=== PATIENT | female | born 1945 | race Caucasian/White ===

== ENCOUNTER 2017-11-14 21:28 | Inpatient (IN) | payer MEDICARE, OTHER ==
[2017-11-14 22:29] LABS: #Basophils 0.1 thou/uL (0.0-0.2); #Eosinphils 0.2 thou/uL (0.0-0.7); #Lymphocytes 2.6 thou/uL (1.20-3.40); #Monocytes 0.4 thou/uL (0.11-0.59); %Eosinophils 1.7 % (0.0-10.0); %Lymphocytes 27.6 % (21.0-51.0); %Monocytes 4.7 % (0.0-10.0); Hemoglobin 13.4 g/dL (12.0-16.0); Mean Corpuscular HGB CONC 34.2 g/dL (32.0-36.0); Mean Corpuscular Hemoglobin 29.9 pg (27.0-31.0); Mean Corpuscular Volume 87.3 fl (81.0-99.0); Platelet Count 164 thou/uL (130-400); RBC Distribution Width 12.8 % (11.5-14.5); Red Blood Cell (RBC) Count 4.48 mill/uL (4.20-5.40); White Blood Cell (WBC) Count 9.2 thou/uL (4.8-10.8)
[2017-11-14 22:52] LABS: ALT (SGPT) 14 U/L (8-55); AST (SGOT) 20 U/L (5-34); Acetaminophen Less than 6.0 mcg/mL (10.0-30.0); Albumin 4.4 g/dL (3.4-4.8); Alcohol Less than 10 mg/dL (Less than 10); Alkaline Phosphatase 79 U/L (40-150); Anion Gap 13 mmol/L (10-20); BUN (Urea Nitrogen) 17 mg/dL (9.8-20.1); Bilirubin, Total 0.6 mg/dL (0.2-1.2); Calc. Creatinine Clearance 0 mL/min (70-130); Calcium 9.4 mg/dL (7.8-10.44); Carbon Dioxide 27 mmol/L (23-31); Chloride 101 mmol/L (98-107); Estimated GFR-MDRD 70; Globulin 3.2 g/dL (2.4-3.5); Glucose 109 mg/dL (83-110); Potassium 3.8 mmol/L (3.5-5.1); Protein, Total 7.6 g/dL (6.0-8.3); Salicylate Less than 8.0 mg/dL (15.0-30.0); Sodium 137 mmol/L (136-145)
[2017-11-15] MEDS ORDERED: Ziprasidone 20 MG VIAL ONE (01:53)
[2017-11-15 04:15] VITALS: BMI 38.9
--- NOTE | 2017-11-15 08:31 | CT ---
PRELIMINARY REPORT/[facility]/EMERGENTY AFTER-HOURS PROCEDURE CT Head Without Intravenous Contrast CLINICAL HISTORY: 71 years old, female; Signs and symptoms; Altered mental status/memory loss; Confusion or disorientat ion; Patient HX: Pt has dementia and started becoming combative towards her . Ems reports she ran out to a nearby home where they took her to the hospital. 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 Pt denies pain. Pt reports wondering around, homeless. TECHNIQUE: Axial computed tomography images of the head/brain without intravenous contrast. COMPARISON: No relevant prior studies available. FINDINGS: Brain: Normal. No hemorrhage. No significant white matter disease. No edema. Ventricles: Normal. No ventriculomegaly. Bones/joints: Normal. No acute fracture. Soft tissues: Normal. Sinuses: Unremarkable as visualized. No acute sinusitis. Mastoid air cells: Unremarkable as visualized. No mastoid effusion. IMPRESSION: No acute intracranial hemorrhage. Thank you for allowing us to participate in the care of your patient. Dictated and Authenticated by: Kirby Isaac MD 11/15/2017 2:15 AM Central Time ([place] & [place]) FINAL REPORT CT HEAD NONCONTRAST: DATE: 11/15/17. TIME: Performed on an emergency basis at 0123 hours. HISTORY: Altered mental status. FINDINGS: Agree with the preliminary report by Dr. Isaac from [facility]. No acute intracranial abnorm alities are demonstrated on noncontrast CT head. POS: OFF
[2017-11-15] MEDS ORDERED: Acetaminophen 500 MG TAB PO PRN (08:59)
[2017-11-15] MEDS ORDERED: Ondansetron HCl/PF 4 MG/2 ML Vial IVP PRN (08:59)
[2017-11-15] MEDS ORDERED: hydrALAZINE 20 MG/ML VIAL SLOW IVP PRN (08:59)
[2017-11-15] MEDS ORDERED: cloNIDine 0.1 MG TAB PO PRN (08:59)
[2017-11-15] MEDS ORDERED: Ondansetron ODT 4 MG TAB PO PRN (08:59)
--- NOTE | 2017-11-15 09:42 | HP ---
DATE OF ADMISSION: 11/15/2017 PRIMARY CARE PHYSICIAN: Dr. Felder at [facility]. CHIEF COMPLAINT: Altered mental status. HISTORY OF PRESENT ILLNESS: This is a 71-year-old female, who presents to [facility] and transport by EMS personnel after the reported patient becoming agitated , combative, and verbally abusive. The patient apparently has had progressive confusion, memory loss as well as paranoia over the last several weeks, worsening in the last 24-48 hours. The patient has been accusing her of kidnapping her and holding her against her will. The reports h e has had several proceedings and conjunction with core proceedings to obtain a guardian as well as c onsider placement in a dementia unit. The has been working with the patient's primary care kike camarillo to establish the administrative tasks of proceeding with placement. reports increasi ng memory difficulties over the last 4 years, worsening in the last several months and increase in co nfusion and paranoia, peaking prior to this evaluation. The reports the patient does have da ys where she is more clear; however, the frequency of these episodes of confusion, paranoia, and verb al assaults are increasing. reports the patient takes no specific chronic medication regimen other than multivitamins and occasional aspirin. No recent sickness, injury, travel history, or [facility] contacts. No history of recent head injury or surgical procedure. The patient was brought to the emergency room undergoing evaluation including screening metabolic survey, which was unremarkable. C T imaging of the brain was unrevealing and patient was evaluated by the [facility] service. Due to patient 's worsening mental status, confusion and paranoia and concern for safety, the patient was deemed an appropriate candidate for admission. PAST MEDICAL HISTORY: 1. Question of hypertension. 2. Question of dementia, progressive. PAST SURGICAL HISTORY: Reviewed and negative. CURRENT MEDICATIONS: 1. Aspirin 81 mg daily. 2. Multivitamin. ALLERGIES: No known drug allergies. FAMILY HISTORY: Father with a history of Alzheimer's dementia. SOCIAL HISTORY: The patient is , resides in [place], [place], with her . No current alcoh ol, tobacco, or illicit drug use. 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 REVIEW OF SYSTEMS: Unobtainable due to patient's altered mental status and dementia. PHYSICAL EXAMINATION: VITAL SIGNS: Currently, blood pressure 142/83, pulse 70, respiratory rate 16, temperature 98.1 degre es Fahrenheit, and O2 saturation 98% on room air. GENERAL APPEARANCE: This is a 71-year-old female, alert and oriented x1, pleasant, in no a cute distress. HEENT: Pupils are equal, round, and reactive to light and accommodation. Extraocular muscles are in tact. No scleral icterus, no conjunctival injection. Nares patent. OP is clear. Teeth in fair rep air. NECK: Supple, no cervical adenopathy, no thyromegaly, no carotid bruits, no JVD appreciated. Cervic al spine with full active and passive range of motion. No meningeal signs appreciated. CHEST: Lungs are clear to auscultation bilaterally. CARDIOVASCULAR: S1 and S2, without noted murmur, rub or gallop. ABDOMEN: Rounded, soft, nontender, nondistended. Bowel sounds are positive in all four quadrants. There is no hepatosplenomegaly, no abdominal bruits, no rebound or guarding appreciated. EXTREMITIES: Warm and dry with fair turgor. No clubbing, cyanosis or asymmetric edema appreciated. Pulses palpable distally at the dorsalis pedis, posterior tibial, and popliteal arteries bilaterally . Capillary refill less than 2 seconds. NEUROLOGIC: Cranial nerves II-XII are grossly intact. No focal or lateralizing signs appreciated. PERTINENT LABORATORY AND X-RAY FINDINGS: Complete metabolic profile within normal limits. CBC withi n normal limits. Urine salicylate, acetaminophen level negative. Plasma alcohol level less than 10. CT of the brain without contrast dated 11/15/2017 showed no acute intracranial process. ASSESSMENT AND PLAN: 1. Dementia, question of Alzheimer's type. The patient will be observed on the medical floor. Clin ically, progressive process. We will obtain neurology consultation for any further recommendations a nd management. Consult case management services for any assistance with possible placement. Check T SH and ammonia level. Continue general supportive management. [facility] evaluation completed in the formerly [facility] room. 2. Encephalopathy. 3. Acute on chronic, likely related to #1. Continue general supportive management. Close observati on on the medical floor. 4. Prophylaxis. Sequential compression devices while in bed. Pepcid 20 mg p.o. b.i.d. 5. Code status is FULL. Surrogate medical decision maker is patient's spouse.
[2017-11-15] MEDS: Famotidine 20 MG TAB PO SCH ×2 (11:20→20:04)
[2017-11-16 01:54] LABS: Clarity Clear (Clear); Leukocyte Negative (Negative); Nitrite Negative (Negative); pH, Urine 6.5 (5.0-9.0)
[2017-11-16 01:55] LABS: Bilirubin Negative (Negative); Blood, Urine Negative (Negative); Glucose, Urine (Dipstick) Negative (Negative); Protein, Urine (Dipstick) Negative (Neg-Trace); Urobilinogen 0.2 mg/dL (0.2-1.0)
[2017-11-16 01:56] LABS: Bacteria/HPF None Seen HPF (None Seen); Hyaline Casts/LPF NONE SEEN LPF (0-3 Hyaline); RBC/HPF None Seen HPF (0-3); Squamous Epithelial None Seen HPF (0-3); WBC/HPF None Seen HPF (0-3)
--- NOTE | 2017-11-16 07:29 | CON ---
DATE OF CONSULTATION: 11/15/2017 REFERRING PHYSICIAN: Dr. Andrzej Cohn. REASON FOR CONSULTATION: Worsening dementia. HISTORY OF PRESENT ILLNESS: Ms. Wright is a pleasant 71-year-old female who has been consulted for evaluation of worsening dementia. History is obtained from patient's as well as patient's medical chart. According to her , the patient has history of cognitive impairment over the past 4- 5 years which has gradually declined. She has difficulty with remembering names of family members. She has difficulty with remembering conversations. She has difficulty with performing simple and complex tasks. Recently, she has also been having hallucination and delusionary behavior. She has become more and more verbally aggressive and abusive. Her reports that it has increasingly become more difficult to take care of her over the past 2 weeks, which prompted him to bring her to this [facility] for further evaluation. During my evaluation, the patient was extremely agitated and stated that she is being held against her will and she is going to file a complaint for keeping her against and locking up against her will even though there is nothing wrong with her. PAST MEDICAL HISTORY: Reviewed and they are as dictated in H and P note done by Dr. Cohn. PAST SURGICAL HISTORY: Reviewed and they are as dictated in H and P note done by Dr. Cohn. SOCIAL HISTORY: Reviewed and they are as dictated in H and P note done by Dr. Cohn. FAMILY HISTORY: Reviewed and they are as dictated in H and P note done by Dr. Cohn. CURRENT MEDICATIONS: Reviewed and they are as dictated in H and P note done by Dr. Cohn. ALLERGIES: Reviewed and they are as dictated in H and P note done by Dr. Cohn. REVIEW OF SYSTEMS: As mentioned in the HPI, otherwise negative. PHYSICAL EXAMINATION: VITAL SIGNS: Blood pressure of 156/84, pulse of 89, temperature of 98.5, respirations of 16, O2 sats of 98% on room air. GENERAL: A well-developed, well-nourished female in no apparent distress. RESPIRATORY: Clear to auscultation bilaterally. CARDIOVASCULAR: Regular rate and rhythm. NEUROLOGIC: Mental status: The patient is awake, alert, oriented to person only. She is able to follow some simple commands. She is very agitated and was not cooperative during my examination and asked me to live her alone, was not able to complete the exam, she was walking around the room independently without any assistance and her gait was appropriate at that time. LABORATORY DATA: Reviewed, which included CBC, CMP, which is essentially normal. IMAGING STUDIES: CT head without contrast was reviewed, which showed no acute intracranial abnormality. IMPRESSION: 1. Dementia, most probable Alzheimer type. 2. Acute agitation. PLAN: Ms. Wright is a pleasant 71-year-old female who presented with the increasing agitation and combative behavior. Based on the description of the patient's presentation and past history, the patient is likely suffering from dementia, most likely advanced stage of dementia. I have discussed with the patient's and explained that this is an advanced stage of dementia and unfortunately medications like Aricept, Namenda, and Exelon would not be helpful at this point. I have explained that it does become very difficult to control this type of behavior and it may be beneficial for her to be admitted to the dementia care unit where she can be appropriately managed for her symptoms. At this time, I would recommend continuing current medical management. If she does have increasing episodes of psychosis, then medications like Seroquel or Zyprexa can be initiated. Continue supportive care. Thank you for consultation. ERVIN
[2017-11-16] MEDS: Famotidine 20 MG TAB PO SCH ×2 (09:33→19:15)
[2017-11-16] MEDS ORDERED: OLANZapine 5 MG TAB PO SCH ×2 (10:00→10:15)
--- NOTE | 2017-11-16 10:04 | PDOC.PN ---
- Subjective Encounter Start Date: 11/16/17 Encounter Start Time: 09:20 Subjective: f/u for psychosis and advanced dementia with intermittent combativeness -: refusing medications and blood draws. Confusion remains per nursing. - Objective Resuscitation Status: Resuscitation Status FULL:Full Resuscitation MAR Reviewed: Yes Vital Signs & Weight: Vital Signs (12 hours) Temp Pulse Resp BP Pulse Ox 11/16/17 08:00 98.2 F 91 20 143/73 H 98 11/16/17 04:06 98.3 F 73 16 116/77 94 L 11/16/17 01:16 98.1 F 68 18 122/70 95 Weight Weight 199 lb 9.6 oz I&O: 11/15/17 11/16/17 11/17/17 06:59 06:59 06:59 Intake Total 1220 Balance 1220 Result Diagrams: 11/14/17 22:20 11/14/17 22:20 Radiology Reviewed by me: Yes (CT brain - no acute process) Phys Exam - Physical Examination alert, responds to questions, oriented to person HEENT: PERRLA, sclera anicteric, oral pharynx no lesions Neck: no nodes, no JVD, supple, full ROM Respiratory: no wheezing, no rales, no rhonchi, clear to auscultation bilateral S1, S2 Cardiovascular: RRR, no significant murmur, no rub, gallop Gastrointestinal: soft, non-tender, no distention, positive bowel sounds Musculoskeletal: no edema, pulses present walks in room unassisted Neurological: moves all 4 limbs A x O x 1 to person Skin: no rash, normal turgor, cap refill <2 seconds Dx/Plan (1) Psychosis Status: Acute Qualifiers: Psychosis type: delusional disorder Qualified Code(s): F22 - Delusional disorders Comment: Psychosis in context of advanced dementia noted, will initiate Zyprexa 5mg daily and monitor clincal response (2) Advanced dementia Code(s): F03.90 - UNSPECIFIED DEMENTIA WITHOUT BEHAVIORAL DISTURBANCE Status: Chronic Comment: Progressive advanced dementia likely not amenable to standard therapy due advanced stages, supportive mgmt - Plan psych social worker, out of bed/ambulate Start Zyprexa 5mg daily today -: Monitor for clinical response -: Sitter 1:1 when family not available -: CM for memory care unit options -: Convert to inpt status due to psychosis and initiation of antipsychotics * .
[2017-11-17] MEDS: OLANZapine 5 MG TAB PO SCH (07:53)
[2017-11-17] MEDS: Famotidine 20 MG TAB PO SCH ×2 (07:53→20:23)
--- NOTE | 2017-11-17 10:05 | PDOC.PN ---
- Subjective Encounter Start Date: 11/17/17 Encounter Start Time: 10:00 Subjective: f/u for psychosis and severe dementia currently under 1:1 observation -: Remains confused but tolerated Zyprexa. - Objective MAR Reviewed: Yes Vital Signs & Weight: Vital Signs (12 hours) Temp Pulse Resp BP BP Pulse Ox 11/17/17 08:03 97.9 F 77 20 145/76 H 99 11/17/17 08:00 97.9 F 77 20 11/17/17 01:00 97.4 F L 71 20 146/88 H 95 I&O: 11/16/17 11/17/17 11/18/17 06:59 06:59 06:59 Intake Total 1210 Balance 1210 Result Diagrams: 11/14/17 22:20 11/14/17 22:20 Additional Labs: Laboratory Tests 11/16/17 11/16/17 11/16/17 10:58 10:59 10:59 Magnesium 2.3 Ammonia 31 TSH 3rd Generation 0.8122 Phys Exam - Physical Examination alert, responds to questions, oriented to person only HEENT: PERRLA, sclera anicteric, oral pharynx no lesions Neck: no nodes, no JVD, supple, full ROM Respiratory: no wheezing, no rales, no rhonchi, clear to auscultation bilateral S1, S2 Cardiovascular: RRR, no significant murmur, no rub Gastrointestinal: soft, non-tender, no distention, positive bowel sounds Musculoskeletal: no edema, pulses present ambulates in room independently Neurological: normal sensation, moves all 4 limbs flat affect, oriented to person only Skin: no rash, normal turgor, cap refill <2 seconds Dx/Plan (1) Psychosis Status: Acute Qualifiers: Psychosis type: delusional disorder Qualified Code(s): F22 - Delusional disorders Comment: Psychosis in context of advanced dementia noted, continue Zyprexa 5mg daily and monitor clincal response (2) Advanced dementia Code(s): F03.90 - UNSPECIFIED DEMENTIA WITHOUT BEHAVIORAL DISTURBANCE Status: Chronic Comment: Progressive advanced dementia likely not amenable to standard therapy due advanced stages, supportive mgmt - Plan social services analyst, out of bed/ambulate Continue sitter 1:1 observation -: Zyprexa 5mg po daily -: CM assisting with memory unit options -: Await final approval for SNF options * .
[2017-11-18] MEDS: Famotidine 20 MG TAB PO SCH ×2 (09:16→22:42)
[2017-11-18] MEDS: OLANZapine 5 MG TAB PO SCH (09:17)
--- NOTE | 2017-11-18 11:37 | PDOC.PN ---
- Subjective Encounter Start Date: 11/18/17 Encounter Start Time: 11:25 Subjective: f/u for advanced dementia with psychotic features. Remains under observatio -: and awaiting memory unit options. Initiated on Zyprexa without observed -: side effects. Remains confused. - Objective MAR Reviewed: Yes Vital Signs & Weight: Vital Signs (12 hours) Temp Pulse Resp BP Pulse Ox 11/18/17 08:00 98.4 F 78 16 99 11/18/17 07:56 98.4 F 78 16 138/81 99 I&O: 11/17/17 11/18/17 11/19/17 06:59 06:59 06:59 Intake Total 1210 1750 Balance 1210 1750 Result Diagrams: 11/14/17 22:20 11/14/17 22:20 Phys Exam - Physical Examination Constitutional: NAD alert, responds to questions HEENT: PERRLA, sclera anicteric, oral pharynx no lesions Neck: no nodes, no JVD, supple, full ROM Respiratory: no wheezing, no rales, no rhonchi, clear to auscultation bilateral S1, S2 Cardiovascular: RRR, no significant murmur, no rub, gallop Gastrointestinal: soft, non-tender, no distention, positive bowel sounds Musculoskeletal: no edema, pulses present Neurological: non-focal, normal sensation, moves all 4 limbs flat affect, speech clear, oriented to person Skin: no rash, normal turgor, cap refill <2 seconds Dx/Plan (1) Psychosis Status: Acute Qualifiers: Psychosis type: delusional disorder Qualified Code(s): F22 - Delusional disorders Comment: Psychosis in context of advanced dementia noted, continue Zyprexa 5mg daily and monitor clincal response (2) Advanced dementia Code(s): F03.90 - UNSPECIFIED DEMENTIA WITHOUT BEHAVIORAL DISTURBANCE Status: Chronic Comment: Progressive advanced dementia likely not amenable to standard therapy due advanced stages, supportive mgmt - Plan out of bed/ambulate, DVT proph w/SCDs Stable overall -: Sitter 1:1 -: CM assisting with memory care options -: Continue Zyprexa 5mg daily * .
[2017-11-19] MEDS: Famotidine 20 MG TAB PO SCH ×2 (08:13→21:48)
[2017-11-19] MEDS: OLANZapine 5 MG TAB PO SCH (08:13)
--- NOTE | 2017-11-19 14:30 | PDOC.PN ---
- Subjective Encounter Start Date: 11/19/17 Encounter Start Time: 14:05 Subjective: f/u for advanced dementia with psychotic features on current Zyprexa. -: No new events overnight. - Objective MAR Reviewed: Yes Vital Signs & Weight: Vital Signs (12 hours) Temp Pulse Resp BP Pulse Ox 11/19/17 08:00 98.2 F 83 18 149/70 H 98 I&O: 11/18/17 11/19/17 11/20/17 06:59 06:59 06:59 Intake Total 1750 720 720 Balance 1750 720 720 Result Diagrams: 11/14/17 22:20 11/14/17 22:20 Phys Exam - Physical Examination Constitutional: NAD HEENT: PERRLA, sclera anicteric, oral pharynx no lesions Neck: no nodes, no JVD, supple, full ROM Respiratory: no wheezing, no rales, no rhonchi, clear to auscultation bilateral S1, S2 Cardiovascular: RRR, no significant murmur, no rub, gallop Gastrointestinal: soft, non-tender, no distention, positive bowel sounds Musculoskeletal: no edema, pulses present Neurological: normal sensation, moves all 4 limbs A x O x 1, flat affect Skin: no rash, normal turgor, cap refill <2 seconds Dx/Plan (1) Psychosis Status: Acute Qualifiers: Psychosis type: delusional disorder Qualified Code(s): F22 - Delusional disorders Comment: Psychosis in context of advanced dementia noted, continue Zyprexa 5mg daily and monitor clincal response (2) Advanced dementia Code(s): F03.90 - UNSPECIFIED DEMENTIA WITHOUT BEHAVIORAL DISTURBANCE Status: Chronic Comment: Progressive advanced dementia likely not amenable to standard therapy due advanced stages, supportive mgmt - Plan social work case manager, out of bed/ambulate Stable currently -: Await final approval for SNF placement -: Continue Zyprexa 5mg daily -: ASA 81mg daily * .
[2017-11-20] MEDS: OLANZapine 5 MG TAB PO SCH (09:09)
[2017-11-20] MEDS: Aspirin 81 mg Enteric Coated Tablet PO SCH (09:09)
[2017-11-20] MEDS: Famotidine 20 MG TAB PO SCH ×2 (09:09→22:22)
--- NOTE | 2017-11-20 17:43 | PDOC.PN ---
- Subjective Encounter Start Date: 11/20/17 Encounter Start Time: 17:40 Subjective: f/u for advanced dementia with psychotic features. No new events. -: Tolerating Zyprexa. - Objective MAR Reviewed: Yes Vital Signs & Weight: Vital Signs (12 hours) Temp Pulse Resp BP Pulse Ox 11/20/17 08:00 97.6 F 80 18 98 11/20/17 07:10 97.6 F 80 18 149/83 H 96 I&O: 11/19/17 11/20/17 11/21/17 06:59 06:59 06:59 Intake Total 720 1080 720 Balance 720 1080 720 Result Diagrams: 11/14/17 22:20 11/14/17 22:20 Phys Exam - Physical Examination Constitutional: NAD HEENT: PERRLA, sclera anicteric, oral pharynx no lesions Neck: no nodes, no JVD, supple, full ROM Respiratory: no wheezing, no rales, no rhonchi, clear to auscultation bilateral S1, S2 Cardiovascular: RRR, no significant murmur, no rub, gallop Gastrointestinal: soft, non-tender, no distention, positive bowel sounds Musculoskeletal: no edema, pulses present Neurological: normal sensation, moves all 4 limbs Flat affect A x O x 1 Skin: no rash, normal turgor, cap refill <2 seconds Dx/Plan (1) Psychosis Status: Acute Qualifiers: Psychosis type: delusional disorder Qualified Code(s): F22 - Delusional disorders Comment: Psychosis in context of advanced dementia noted, continue Zyprexa 5mg daily and monitor clincal response (2) Advanced dementia Code(s): F03.90 - UNSPECIFIED DEMENTIA WITHOUT BEHAVIORAL DISTURBANCE Status: Chronic Comment: Progressive advanced dementia likely not amenable to standard therapy due advanced stages, supportive mgmt - Plan social staff worker, out of bed/ambulate, DVT proph w/SCDs Stable currently -: Continue Zyprexa 5mg daily -: Await final approval to memory care unit -: Likely can d/c in 24h * .
[2017-11-21 08:40] VITALS: BP 138/84; TEMP 98.4
[2017-11-21] MEDS: Famotidine 20 MG TAB PO SCH (09:14)
[2017-11-21] MEDS: Aspirin 81 mg Enteric Coated Tablet PO SCH (09:14)
[2017-11-21] MEDS: OLANZapine 5 MG TAB PO SCH (09:14)
--- NOTE | 2017-11-21 12:12 | DIS ---
DATE OF DISCHARGE: 11/21/2017 DISCHARGE DIAGNOSES: 1. Advanced dementia with psychotic features. 2. Hypertension. CONSULTATIONS: Dr. Faye Dean with Neurology Service. PERTINENT LABORATORY AND X-RAY FINDINGS: Complete metabolic profile within normal limits. Magnesium 2.3, ammonia 31. TSH 0.81. CBC within normal limits. Urinalysis negative. Plasma alcohol level l ess than 10. Urine culture dated 11/16/2017 showed 10-25,000 colonies of normal he. CT of the br ain without contrast dated 11/15/2017 showed no acute intracranial process. HOSPITAL COURSE: The patient was admitted to the medical floor after presenting with altered mental status in the context of progressive and advanced dementia with combative and verbally abusive behavi or toward family members and her . The patient with increasing confusion, memory loss and par anoia prompting medical admission. The patient underwent general evaluation including CT imaging of the brain showing no acute intracranial process. Metabolic screening was essentially unremarkable an d no organic cause or infectious process was identified to explain the patient's behavior. The patie nt was evaluated by the Neurology Service with recommendations for antipsychotic therapy including Zy prexa 5 mg daily. The patient remained under one-on-one observation throughout the hospital course a nd was evaluated by case management services to assist with placement options to include Memory Care. The patient has been approved for transfer to [facility] for ongoing supervi sed medical care and therapy. I have examined the patient at the time of discharge and discussed fol [facility] recommendations. The patient overall clinically stable and ready for discharge on 11/21/2017. DISCHARGE MEDICATIONS: 1. Enteric coated aspirin 81 mg 1 tab p.o. daily. 2. Lisinopril 20 mg 1 tab p.o. daily. 3. Multivitamin 1 tab p.o. daily. 4. Zyprexa 5 mg p.o. daily. FOLLOWUP: The patient may follow up with her primary care provider, Dr. Felder. CONDITION ON DISCHARGE: Fair. ACTIVITY: Ad yaima. DIET: Regular. CODE STATUS: Full. DISPOSITION: Discharged to [facility]/Memory Care 11/21/2017.
== END 2017-11-21 17:14 | DRG 884 ==
LOC: ERS 21:28 → T4-A 11-15 01:07 → OBSVTOIN 11-16 10:02
PROVIDERS: ADMIT Family Medicine; ATTEND Family Medicine
DX: F03.91 Unspecified dementia, unspecified severity, with behavioral disturbance (principal); I10 Essential (primary) hypertension; Z79.899 Other long term (current) drug therapy; Z79.82 Long term (current) use of aspirin; Z82.0 Family history of epilepsy and other diseases of the nervous system
CPT/HCPCS: 36415; 70450; 80053; 80307; 81001; 82140; 83735; 84443; 85025; 87086; A4216; J3486

== ENCOUNTER 2018-03-01 14:23 | Emergency (ER) | payer MEDICARE, MEDICAID ==
--- NOTE | 2018-03-01 15:02 | RAD ---
PORTABLE CHEST ONE VIEW: Date: 03-01-18 Time: 2:31 p.m. History: Chest pain. FINDINGS: The heart size is normal. No focal areas of consolidation, pneumothoraces or pleural effusions are se en. IMPRESSION: No acute process. POS: [facility]
[2018-03-01 15:26] LABS: #Basophils 0.1 thou/uL (0.0-0.2); #Eosinphils 0.1 thou/uL (0.0-0.7); #Lymphocytes 1.4 thou/uL (1.20-3.40); #Monocytes 0.4 thou/uL (0.11-0.59); #Neutrophils 4.6 thou/uL (1.40-6.50); %Basophils 0.8 % (0.0-1.0); %Lymphocytes 21.6 % (21.0-51.0); %Monocytes 6.7 % (0.0-10.0); %Neutrophils 68.9 % (42.0-75.0); Hemoglobin 13.1 g/dL (12.0-16.0); Mean Corpuscular HGB CONC 32.8 g/dL (32.0-36.0); Mean Corpuscular Hemoglobin 28.8 pg (27.0-31.0); Mean Corpuscular Volume 87.9 fL (78.0-98.0); Mean Platelet Volume 9.4 fL (7.4-10.4); Platelet Count 145 thou/uL (130-400); RBC Distribution Width 13.1 % (11.5-14.5); Red Blood Cell (RBC) Count 4.54 mill/uL (4.20-5.40); White Blood Cell (WBC) Count 6.7 thou/uL (4.8-10.8)
[2018-03-01 15:48] LABS: Bilirubin Negative (Negative); Blood, Urine Negative (Negative); Clarity CLEAR (Clear); Glucose, Urine (Dipstick) Negative (Negative); Leukocyte Moderate (Negative); Nitrite Negative (Negative); Protein, Urine (Dipstick) Negative (Neg-Trace); Specific Gravity, Urine 1.017 (1.002-1.036)
[2018-03-01 15:50] LABS: ALT (SGPT) 14 U/L (8-55); AST (SGOT) 18 U/L (5-34); Albumin 3.8 g/dL (3.4-4.8); Alkaline Phosphatase 83 U/L (40-150); Anion Gap 14 mmol/L (10-20); BUN (Urea Nitrogen) 12 mg/dL (9.8-20.1); Bilirubin, Total 0.3 mg/dL (0.2-1.2); CK (CPK) 61 U/L (29-168); Calc. Creatinine Clearance 0 mL/min (70-130); Calcium 9.2 mg/dL (7.8-10.44); Carbon Dioxide 22 mmol/L (23-31); Chloride 105 mmol/L (98-107); Estimated GFR-MDRD 64; Glucose 92 mg/dL (83-110); Protein, Total 6.8 g/dL (6.0-8.3); Sodium 137 mmol/L (136-145)
[2018-03-01 15:51] LABS: Bacteria/HPF Rare-Few HPF (None Seen); Hyaline Casts/LPF 0-3 HYALINE CAST LPF (0-3 Hyaline); Pathc Cast-AUWi Flag 0.29 (0-2.49); RBC/HPF 0-3 HPF (0-3)
[2018-03-01 15:53] LABS: CKMB 1.7 ng/mL (0-6.6)
[2018-03-01 16:01] LABS: Troponin I Less than 0.010 ng/mL (< 0.028)
[2018-03-01 17:29] LABS: Troponin I Less than 0.010 ng/mL (< 0.028)
== END 2018-03-01 19:10 | disposition home or self-care (01) ==
LOC: ERS 14:23
DX: N39.0 Urinary tract infection, site not specified (principal); R07.89 Other chest pain; F32.9 Major depressive disorder, single episode, unspecified; Z79.82 Long term (current) use of aspirin; Z79.899 Other long term (current) drug therapy
CPT/HCPCS: 36415; 71045; 80053; 81003; 81015; 82550; 82553; 83880; 84484; 85025; 93005

== ENCOUNTER 2018-07-11 09:05 | Day surgery (SDC) | payer MEDICARE, MEDICAID ==
[2018-07-11] MEDS ORDERED: CEFAZOLIN 2 GM/50 ML BAG ONE (10:20)
--- NOTE | 2018-07-12 11:47 | OP ---
DATE OF PROCEDURE: 07/11/2018 OPERATIVE PROCEDURE: Esophagogastroduodenoscopy with endoscopic gastrostomy tube placement. PREOPERATIVE DIAGNOSIS: A 72-year-old, female with dementia, dysphagia, and poor oral intake. She underwent esophagogastroduodenoscopy and percutaneous endoscopic gastrostomy tube placement. POSTOPERATIVE DIAGNOSES: 1. Small hiatus hernia. 2. Gastritis, some occasional erosions of the gastric antrum. DESCRIPTION OF PROCEDURE: The patient was placed on her back and was given sedation by Anesthesia Department. The patient had received IV Ancef 2 g before the procedure. A bite block was placed. A Pentax videogastroscope under direct vision passed down the oropharynx passed the GE junction into the stomach and subsequently into the descending duodenum. The esophageal mucosa appeared normal. The GE junction, no pathology. She has a small hiatus hernia. Retroflexion failed to show any pathology in the fundus or cardia. The gastric body, no pathology seen. The gastric antrum of the pyloric opening shows some erosions and gastritis. The duodenal bulb and descending duodenum, no pathology seen. The G-tube site was locked by applying finger pressure over the abdominal wall. The site was cleaned and surgically prepped. The site was anesthetized with 1% Xylocaine infiltration. Over the site, a 16 Angiocath was advanced into the stomach. The guidewire was fed through the Angiocath into the stomach. This was grasped with polypectomy snare and pulled outside the mouth. The gastrostomy tube was connected to the end of the guidewire protruding outside of the mouth. The wire was pulled back retrograde and the tube left in place. The patient re-scoped again. No complication. The tube in good position. The stomach decompressed and the scope removed. DISCHARGE PLAN: This is a 72-year-old female referred to me for the EGD and PEG tube placement. She underwent the procedure without difficulty. She is being discharged back to alf and will commence tube feeding diet later on today. Job ID: [id number]
== END 2018-07-11 14:02 | disposition home or self-care (01) ==
LOC: SDC 09:05
PROVIDERS: ATTEND Internal Medicine Gastroenterology
PROC: 0DH63UZ Insertion of Feeding Device into Stomach, Percutaneous Approach (ICD-10-PCS; principal; 2018-07-11)
DX: K44.9 Diaphragmatic hernia without obstruction or gangrene (principal); K29.70 Gastritis, unspecified, without bleeding; Z79.82 Long term (current) use of aspirin; Z79.899 Other long term (current) drug therapy